=== PATIENT | female | born 1990 | race African-American/Black ===

== ENCOUNTER 2017-03-08 21:55 | Emergency (ER) | payer OTHER ==
[2017-03-08 22:46] LABS: Bilirubin Negative (Negative); Blood, Urine Negative (Negative); Clarity CLEAR (Clear); Glucose, Urine (Dipstick) Negative (Negative); Leukocyte Small (Negative); Nitrite Negative (Negative); Protein, Urine (Dipstick) 30 mg/dL (Neg-Trace); Specific Gravity, Urine 1.027 (1.002-1.036); pH, Urine 6.5 (5.0-9.0)
[2017-03-08 22:47] LABS: Bacteria/HPF None Seen HPF (None Seen); Hyaline Casts/LPF 0-3 HYALINE CAST LPF (0-3 Hyaline); Pathc Cast-AUWi Flag 0.27 (0-2.49)
== END 2017-03-09 01:08 | disposition home or self-care (01) ==
LOC: ERS 21:55
DX: O20.0 Threatened abortion (principal); O98.811 Other maternal infectious and parasitic diseases complicating pregnancy, first trimester; B37.3 Candidiasis of vulva and vagina; O99.341 Other mental disorders complicating pregnancy, first trimester; F41.9 Anxiety disorder, unspecified; F31.9 Bipolar disorder, unspecified; F20.9 Schizophrenia, unspecified; O99.331 Smoking (tobacco) complicating pregnancy, first trimester; Z3A.13 13 weeks gestation of pregnancy
CPT/HCPCS: 36415; 81003; 81015; 84702; 86900; 86901; 87081; 87480; 87491; 87510; 87591; 87660; 99284

== ENCOUNTER 2017-05-05 23:18 | Day surgery (SDC) | payer OTHER ==
[2017-05-05 23:46] VITALS: BMI 37.8
--- NOTE | 2017-05-06 00:38 | PDOC.LDHP ---
Labor and Delivery H&P Chief complaint: other (lower abd/groin pain and vaginal discharge and itching for 3 days) HPI: Jimbo Blair is a 26 year old F at 22.1 wks by 8.6 wk US who presents today with a 3 day history of lower abdominal/groin pain as well as 3 days of vaginal itching and white discharge. She is feeling movement, she denies LOF, vaginal bleeding, contractions, or fevers. She is a patient of [facility] , Dr. Barney is her PCP. She has been seen several times at the clinic with complaints of similar symptoms. She has had multiple wet tiffany with clue cells and she has completed treatment with vaginal clindamycin in the first trimester and PO flagyl in the 2nd trimester for BV. She was also seen in the ED on March 08 with similar symptoms and had a negative GC/Ch and was positive for BV at that time. Current gestational age (weeks): 22 (22.1 wks) Due date: 09/08/17 Dating criteria: first trimester ultrasound (8.6 wks) Grav: 4 Para: 3 (3003) OB History Details: Last two deliveries have been via LTCS. Patient is planning to have repeat . Last was complicated by gestational DM. Current complications: other (mild iron deficiency anemia) Abnormal US findings: No Current medications: none, pre- vitamins Previous surgical history: low tranverse CS (X2) Social history: tobacco use (quit smoking on 02/05/2017, has not smoked since then) - Physical Exam Vital signs reviewed and normal: yes (BP 123/63, HR 96, RR 18, T 98.3) General: NAD, resting Heart: RRR Lungs: nonlabored breathing Abdomen: NTTP Extremeties: no edema FHT: category 1 (baseline 150, mod variability, no accels or decels), variability present [place] contractions every: none - Vaginal Exam cm dilated: 0 (deferred ) - OB Labs Blood type: O RH: positive Antibody Screen: negative HIV: negative RPR: negative HEPSAg: negative Rubella: immune - Assessment (1) Round Ligament Pain (2) Vaginal discharge: history of BV multiple times this discharge points more to estrella - Plan -: (1) Round Ligament Pain: history and physical exam most consistent with round ligament pain. patient denies fevers. Recommend tylenol. (2) Vaginal discharge: History of BV multiple times this s/p treatment. Vaginal discharge consistency more likely estrella. Recommended Monistat 7 cream as well as clotrimazole. VP3 pending. Will notify patient of results when they return in the morning. <Gian Torres - Last Filed: 05/06/17 00:49> <Katt Smith - Last Filed: 05/06/17 22:17> Allergies/Adverse Reactions: Allergies Allergy/AdvReac Type Severity Reaction Status Date / Time No Known Drug Allergies Allergy Unknown Verified 05/05/17 23:48 Attending Addendum - Attending Addendum Date/Time: 05/06/17 8782 I personally evaluated the patient and discussed the management with Dr. Torres. I agree with the History, Examination, Assessment and Plan documented above with any addition or exceptions noted below- 26 year old F at 22.1 wks by 8.6 wk US who presents today with a 3 day history of lower abdominal/groin pain as well as 3 days of vaginal itching and white discharge. VP3 collected and pending. Will notify patient of results. (+) FHTs; no contractions. D/c home and f/u with PCP as scheduled. <Katt Smith - Last Filed: 05/06/17 22:17>
== END 2017-05-06 00:51 | disposition home or self-care (01) ==
LOC: L&D/OP 23:18
PROVIDERS: ATTEND Family Medicine
DX: O99.89 Other specified diseases and conditions complicating pregnancy, childbirth and the puerperium (principal); R10.2 Pelvic and perineal pain; O98.812 Other maternal infectious and parasitic diseases complicating pregnancy, second trimester; B37.9 Candidiasis, unspecified; O99.012 Anemia complicating pregnancy, second trimester; D50.9 Iron deficiency anemia, unspecified; Z3A.22 22 weeks gestation of pregnancy; Z79.899 Other long term (current) drug therapy; Z98.891 History of uterine scar from previous surgery; Z87.891 Personal history of nicotine dependence; Z86.19 Personal history of other infectious and parasitic diseases
CPT/HCPCS: 87480; 87510; 87660; 99283

== ENCOUNTER 2017-08-03 16:43 | Day surgery (SDC) | payer OTHER ==
[~2017-08-03 16:43] MED LIST: ISOVUE-370 76%-LOCM 1 ML ONE
[2017-08-03 17:29] VITALS: BMI 36.9
[2017-08-03] MEDS ORDERED: Lactated Ringer's 1,000 ML IV SCH ×2 (19:00→22:00)
[2017-08-03] MEDS ORDERED: hydrOXYzine 25 MG TAB PO SCH (19:00)
--- NOTE | 2017-08-03 19:04 | PDOC.LDHP ---
Labor and Delivery H&P Chief complaint: other (tachycardia in the clinic) HPI: Patient is a 27yo at 34.6 by LMP/8.6wk presents from clinic for tachycardia into the 120's-130's associated with chest pain. She describes CP as substernal sharp 8/10 CP that was sudden onset at clinic and associated with some SOB. She reports anxiety at the time of the event and endorses similar events at home which she has attributed to anxiety. The pain resolved after receiving 1L IVF at the clinic. At the time of my evaluation she reports no chest pain or SOB. She also has a hx of GERD, but reports this did not feel like GERD pain. She has FHx of early CAD in maternal GM and HTN in mother. She is a smoker, 6cig per day, and has A1GDM, taking Metformin but not as she should because it makes her feel "dizzy." Despite this, she reports her sugars to be 80's-100's. She denies leg pain, LE edema, LOF, decreased FM, VB, and vaginal discharge. She is currently being treated for a yeast infection with Diflucan. Current gestational age (weeks): 34 (34.6) Due date: 09/08/17 Dating criteria: last menstrual period, first trimester ultrasound Grav: 4 Para: 3 OB History Details: first - , no complications 2nd preg- Csection for non-reassuring FHT, GDM diet controlled 3rd preg- Csection, repeat, no complications Current complications: gestational diabetes Abnormal US findings: No Current medications: pre- vitamins, iron, other (Metformin BID, dose unk) Previous surgical history: low tranverse CS Social history: tobacco use (6 cig per day) - Physical Exam Vital signs reviewed and normal: yes Abnormal vital signs: Highest HR here has been 103 General: NAD, resting Heart: RRR Lungs: CTAB Abdomen: gravid Extremeties: other (neg homans) FHT: category 1 [place] contractions every: none - OB Labs Blood type: O RH: positive Antibody Screen: negative HIV: negative RPR: negative HEPSAg: negative 1 hour GCT: positive 3 hour GTT: 147 GBS: unknown Urine drug screen: not done Rubella: immune - Assessment Patient is a at 34.6 her with concern for PE vs anxiety disorder with finding of tachycardia in clinic. HR borderline high at this time, 85 on last set of vitals - EKG ordered to evaluate tachycardia - D-dimer and CTA, consent signed - evaluate for other causes with CBC, TSH, and BMP - will give Hydroxyzine x1 for anxiety - s/p 1L IVF, PO hydrate A1GDM - on Metformin, but not consistent, reports BS wnl at home - A1c pending Will evaluate above labs and tests for d/c vs admission. - Plan Plan: observation in L&D <Abby Jones - Last Filed: 08/03/17 19:02> <Brian Edge - Last Filed: 08/03/17 22:03> Allergies/Adverse Reactions: Allergies Allergy/AdvReac Type Severity Reaction Status Date / Time No Known Drug Allergies Allergy Unknown Verified 08/03/17 17:31 Attending Addendum - Attending Addendum Date/Time: 08/03/17 2200 I personally evaluated the patient and discussed the management with Dr. Jones and Kayla, who saw the patient in clinic. I agree with and repeated the History, Examination, Assessment and Plan documented above with any addition or exceptions noted below. Pt with description as above, but denies any s/s of panic attacks to me previously. Discussed with Dr. Garza, and patient was apparently rather ill appearing in clinic and was sent over specifically to r/o PE. She is currently with no CP or SOB, but anxious about what happened. RRR s M CTAB s w/r/r BS+, NTTP, gravid Neg Conor, symmetric calf circumference Workup as above with disposition pending. <Brian Edge - Last Filed: 08/03/17 22:03>
[2017-08-03 19:30] LABS: Hemoglobin A1c 5.1 % (4.0-6.0)
[2017-08-03 19:32] LABS: Anion Gap 12 mmol/L (10-20); BUN (Urea Nitrogen) 6 mg/dL (7.0-18.7); Calc. Creatinine Clearance 214 mL/min (70-130); Calcium 8.6 mg/dL (7.8-10.44); Carbon Dioxide 18 mmol/L (22-29); Chloride 109 mmol/L (98-107); Estimated GFR-MDRD Greater than 90; Glucose 61 mg/dL (70-105); Potassium 3.9 mmol/L (3.5-5.1); Sodium 135 mmol/L (136-145)
[2017-08-03 19:35] LABS: #Eosinphils 0.1 thou/uL (0.0-0.7); #Lymphocytes 2.1 thou/uL (1.20-3.40); #Monocytes 0.9 thou/uL (0.11-0.59); #Neutrophils 7.1 thou/uL (1.40-6.50); %Basophils 0.3 % (0.0-1.0); %Eosinophils 0.8 % (0.0-10.0); %Lymphocytes 20.2 % (21.0-51.0); %Monocytes 8.9 % (0.0-10.0); %Neutrophils 69.8 % (42.0-75.0); Hemoglobin 10.3 g/dL (12.0-16.0); Mean Corpuscular HGB CONC 32.5 g/dL (32.0-36.0); Mean Corpuscular Hemoglobin 23.4 pg (27.0-31.0); Mean Corpuscular Volume 71.9 fL (78.0-98.0); Mean Platelet Volume 7.7 fL (7.4-10.4); Platelet Count 236 thou/uL (130-400); RBC Distribution Width 13.4 % (11.5-14.5); White Blood Cell (WBC) Count 10.1 thou/uL (4.8-10.8)
[2017-08-03 19:50] LABS: Hypochromia SLIGHT = 6-15 cells (100X) (0-5/hpf); MDiff Complete? YES; Microcytosis SLIGHT = 6-15 cells (100X) (0-5/hpf); PLT Morphology Comment Appears Adequate; Polychromasia SLIGHT = 2-3 cells (100X) (0-2/hpf)
[2017-08-03 19:56] VITALS: BP 126/68; TEMP 98.5
[2017-08-03 20:19] LABS: Amphetamine Not Detected (NotDetected); Barbiturates Screen Not Detected (NotDetected); Benzodiazepine Screen Not Detected (NotDetected); Cocaine Metabolite Screen Not Detected (NotDetected); Medtox Reader # READER 1; Methadone Not Detected (NotDetected); Methamphetamine Not Detected (NotDetected); Opiate Screen Not Detected (NotDetected); Oxycodone Screen Not Detected (NotDetected); Phencyclidine (PCP) Not Detected (NotDetected); THC/Cannabinoid Screen Not Detected (NotDetected); Tricyclic Screen Not Detected (NotDetected)
[2017-08-03 20:20] LABS: Medtox Control Line Valid? VALID (VALID)
--- NOTE | 2017-08-03 22:05 | PDOC.EVN ---
Event Note - Event Note Event Note: Patient labs resulted. All tests wnl. EKG NSR, CTA negative, CBC, BMP, TSH, and UDS wnl. Patient now with HR of 75 and much improved after Hydroxyzine. Will give script for prn Hydroxyzine and have f/u with Dr. Barney in [facility] clinic next week. <Abby Jones - Last Filed: 08/03/17 22:02> Attending Addendum - Attending Addendum Date/Time: 08/04/17621 Reviewed and agree with plan. <Brian Edge - Last Filed: 08/04/17 06:22>
--- NOTE | 2017-08-03 22:28 | CT ---
CTA THORAX WITH CONTRAST: (Computed Tomographic Angiography, chest(noncoronary) with contrast material, and image postprocessin g) (PE protocol) DATE: 08/03/17 TIME: 8:44 p.m. HISTORY: 27-year-old female with chest pain, dyspnea, tachycardia and elevated D-dimer. TECHNIQUE: IV injection of iodinated contrast: Isovue. Scan acquisition timing attempted to coincide with iodinated contrast bolus reaching maximal density in pulmonary arteries. 3D MIP reconstructions. FINDINGS: Because of body habitus, the peripheral branches of the pulmonary arteries are somewhat difficult to evaluate. No thrombus is identified in the pulmonic trunk, left and right main pulmonary arteries, or their proximal branches. No thoracic aortic aneurysm or dissection. Mild cardiomegaly. No pleural ef fusion or pneumothorax. No consolidation. No mediastinal or hilar lymphadenopathy. There appears to b e hepatomegaly, only partially imaged. Trachea and bilateral mainstem bronchi are patent and clear. IMPRESSION: 1. No evidence of pulmonary thromboembolism. 2. Hepatomegaly. 3. Borderline or mild cardiomegaly. lovely[] POS: [facility]
--- NOTE | 2017-08-04 06:46 | PDOC.EVN ---
Event Note - Event Note Event Note: Addendum: Feel cardiomegaly on imaging physiologic 2/2 . Concerning hepatomegaly presentation not c/w ICP, hepatitis, biliary pathology, AFP, HELLP , preE, etc. Will follow in clinic early next week.
== END 2017-08-03 22:11 | disposition home or self-care (01) ==
LOC: L&D/OP 16:43
PROVIDERS: ATTEND Emergency Medicine
DX: O99.89 Other specified diseases and conditions complicating pregnancy, childbirth and the puerperium (principal); R00.0 Tachycardia, unspecified; O24.419 Gestational diabetes mellitus in pregnancy, unspecified control; Z3A.34 34 weeks gestation of pregnancy
CPT/HCPCS: 36415; 71275; 80048; 80306; 83036; 84443; 85025; 85379; 93005; 93010; 96360; 96361; 99285

== ENCOUNTER 2017-08-17 16:45 | Day surgery (SDC) | payer OTHER ==
[2017-08-17 17:23] VITALS: BP 134/75; TEMP 98.1; BMI 37.0
[2017-08-17] MEDS ORDERED: Lactated Ringer's 1,000 ML IV SCH (18:15)
[2017-08-17 18:59] LABS: Amnisure Test No Membranes Rupture (No Rupture)
[2017-08-17 19:00] LABS: Amnisure Internal Control QC ACCEPTABLE (ACCEPTABLE)
--- NOTE | 2017-08-17 19:18 | PDOC.LDHP ---
Addendum entered and electronically signed by Helen East MD 08/17/17 21:50 : Addendum entered and electronically signed by Helen East MD 08/17/17 21:40 : Agree with with interns note below. Sent over for decreased tone and low KAREEN on BPP in clinic today. Triaged in L&D , records reviewed. Liter bolus given. BPP repeated and 6/8 (loss for breathing) . KAREEN 9.3. Patient now reports good FM. PROM ruled out with negative amnisure. BP remain in normal range. NST reactive. Will d/c with follow up in 4 days on Monday. Precautions provided to return for decreased movement, LOF, vag bleeding, ctxs, or maternal concern. Original Note: Labor and Delivery H&P Chief complaint: contractions, other (Concern for low KAREEN and no tone) HPI: 27 yo F @ 36.6 wks by 8.6 wk US consistent with LMP, sent here from clinic for concern for low KAREEN and no tone. BPP 6/10 secondary to poor tone and KAREEN of 4.94. US at 36 wks showed KAREEN of 12.4. Patient denies LOF, cxn, bleeding , and baby is moving well now. Pt states baby was moving less earlier today. She states she has had increased creamy white non-malodorous discharge this week. Pregancy complicated by A2GDM treated by metformin. Pt states she ran out of strips, but Blood sugars last week were fasting in 80s, 2 hr post-prandial 107- 111. She currently smokes 5 cigarettes/day. Anemia of with this . Last H&H (on 07/17) 10.2/32.8. Prior with Pre-eclampsia. Hx of 2 prior Csections. FHTs are reassuring: Baseline 140, moderate variability, good accels, no decels , and no contractions. Cat 1 FHTs. 08/11/17 [facility] up [facility] at [facility] (36.0 wks): transabdominal US: EFW 2495 23%, BPP 8/8, normal UA dopplers, KAREEN 12.4 ROS: HEENT: + for Headache, no fevers/chills, cough or congestion, Chest: no chest pain or SOB. +Pain on left lateral chest Abd: no belly pain, nausea/vom, no blood in stools. : + discharge. no LOF. no dysuria or incontinence. Psych: + for anxiety Current gestational age (weeks): 36 (36.3) Due date: 09/08/17 Dating criteria: last menstrual period, first trimester ultrasound (8.6 wk US consistent with LMP) Grav: 4 Para: 3 OB History Details: [place] [facility] [place]36.0 [place] transabdominal US: EFW 2495 23%, BPP 8/8, normal UA dopplers, KAREEN 12.4. KAREEN in clinic topday (08/17) was 4.94. Pregancy complicated by A2GDM treated by metformin. Pt states she ran out of strips, but Blood sugars last week were fasting in 80s, 2 hr post-prandial 107- 111. She currently smokes 5 cigarettes/day. Anemia of with this . Last H&H (on 07/17) 10.2/32.8. GBS+. Proteinuria (but her BP have remained stable). Prior with Pre- eclampsia. Hx of 2 prior Csections. Current complications: gestational diabetes, gestational hypertension , other (GBS+, smoking 5cig/day, anemia of ) Past Medical History: Medical: Iron deficiency anemia, obesity Surgical: two prior Csections Family: Maternal gma [place] and stroke; great aunt with breast cancer, great aunt with DM Current medications: pre-dario vitamins, iron (325mg PO BID), other ( Hydroxyzine 25 mg TID for anxiety; metformin 500 BID for GDM) Previous surgical history: other (2 Csections) Social history: tobacco use (5 cig/day; denies alcohol or drug use) - Physical Exam Vital signs reviewed and normal: yes (BP 134/75, P 104, O2 98%, RR 12) General: NAD, resting Heart: other (no murmurs, rubs, or gallops) Lungs: CTAB Abdomen: other (non tender to palpation) Extremeties: other (cap refill <2 seconds) FHT: category 1 (Baseline 140, mod variability, good accels, no decels, no contractions.) - OB Labs Blood type: O RH: positive Antibody Screen: negative HIV: negative RPR: negative HEPSAg: negative 1 hour GCT: positive GBS: positive Rubella: immune - Assessment 27 yo F @ 36.6 wks by 8.6 wk US, concern for low KAREEN and no tone, and rule out rupture of membranes. - Plan -: 27 yo F @ 36.6 wks by 8.6 wk US, concern for low KAREEN and no tone, and rule out rupture of membranes. 1. Concern for Oligohydramnios: -bolus with fluids, followed by BPP with limited US including umbilical dopplers -amniosure to r/o rupture -Reassuring NSTs 2. Proteinuria -Has been worked up for Pre-Ecclampsia, but her blood pressures have remained stable 3. Anemia of -Iron 4. A2GDM -Continue metformin 5. Headache -Tylenol 6. Current tobacco user 7. GBS+ <Bobbi Huddleston - Last Filed: 08/17/17 21:34> - Plan -: agree with interns noted above. Patient evaluated and seen with business services intern. Records reviewed. Patient sent over from clinic for decreased tone and low KAREEN on BPP. Received 1 lt bolus in L&D. BPP repeated and 07/14. (loss for breathing). KAREEN = 9.3. Vitals reviewed and wnl. PROM ruled out with neg amnisure. Will DC patient with follow up in 4 days on Monday. Precautions provided to return for decreased movement, LOF, vag bleeding, ctxs, or maternal concern. Helen East MD PGY-3 <Mone Gmoez - Last Filed: 08/17/17 22:01> Allergies/Adverse Reactions: Allergies Allergy/AdvReac Type Severity Reaction Status Date / Time No Known Drug Allergies Allergy Unknown Verified 08/03/17 17:31 Attending Addendum - Attending Addendum Date/Time: 08/17/17 5359 I personally evaluated the patient and discussed the management with Dr. Huddleston and Dr. East I agree with the History, Examination, Assessment and Plan documented above with any addition or exceptions noted below. 27 yo female at 36.6 wks by LMP/8.6 wk sono here for evaluation of nonreassuring testing. Patient with poorly controlled A2 GDM presents with BPP 4/8 with reactive NST. Patient given IVFs. Repeat BPP 07/14 with reactive NST. + FM. Amnisure negative. POC glucose = 76 Ok to send home. Precautions discussed. Follow up on Monday with PCP. Claritza <Mone Gomez - Last Filed: 08/17/17 22:01>
[2017-08-17] MEDS ORDERED: Acetaminophen 325 MG TAB PO PRN (20:13)
--- NOTE | 2017-08-17 22:06 | ULT ---
LIMITED OBSTETRICAL ULTRASOUND AND BIOPHYSICAL PROFILE: 08/17/17 HISTORY: Concern for low KAREEN and no tone. TECHNIQUE: Multiplanar sher scale sonographic imaging of the gravid uterus obtained. FINDINGS: A single intrauterine gestation is present demonstrating a cephalic presentation. head obscures evaluation of the cervix. heart rate is 137 beats per minute. Amniotic fluid index is 9.3 cm. Umbilical arterial doppler in the mid umbilical artery demonstrates a systolic/diastolic ratio of 1.2-1.8 and a peak systolic velocity between 66 and 78 cm/s. The ice skating teacher reports 2 out of 2 score for tone, movement and amniotic fluid and 0 out of 2 for breathing correlating with a 6 out of 8 biophysical profile score. BIOMETRY: BPD 8.9 cm 36 weeks, 0 days. HC 31.4 cm 35 weeks, 1 day AC 31.6 cm 35 weeks, 3 days FL 6.8 cm 34 weeks, 5 days Average aged based on ultrasound is 35 weeks, 2 days with estimated weight of 2643 grams plus m inus 391 grams. Estimated date of delivery is 09/19/17. IMPRESSION: Intrauterine gestation as above. 6 out of 8 biophysical profile score. Performing ice skating teacher reports giving verbal report to Dr. Huddleston. POS: [facility]
[2017-08-17 22:48] LABS: Amphetamine Not Detected (NotDetected); Barbiturates Screen Not Detected (NotDetected); Benzodiazepine Screen Not Detected (NotDetected); Cocaine Metabolite Screen Not Detected (NotDetected); Medtox Control Line Valid? VALID (VALID); Medtox Reader # READER 1; Methadone Not Detected (NotDetected); Methamphetamine Not Detected (NotDetected); Opiate Screen Not Detected (NotDetected); Oxycodone Screen Not Detected (NotDetected); Phencyclidine (PCP) Not Detected (NotDetected); THC/Cannabinoid Screen Not Detected (NotDetected); Tricyclic Screen Not Detected (NotDetected)
--- NOTE | 2017-08-18 14:19 | ULT ---
LIMITED OBSTETRICAL ULTRASOUND AND BIOPHYSICAL PROFILE: 08/17/17 HISTORY: Concern for low KAREEN and no tone. TECHNIQUE: Multiplanar sher scale sonographic imaging of the gravid uterus obtained. FINDINGS: A single intrauterine gestation is present demonstrating a cephalic presentation. head obscures evaluation of the cervix. heart rate is 137 beats per minute. Amniotic fluid index is 9.3 cm. Umbilical arterial doppler in the mid umbilical artery demonstrates a systolic/diastolic ratio of 1.2-1.8 and a peak systolic velocity between 66 and 78 cm/s. The return agent airport reports 2 out of 2 score for tone, movement and amniotic fluid and 0 out of 2 for breathing correlating with a 6 out of 8 biophysical profile score. BIOMETRY: BPD 8.9 cm 36 weeks, 0 days. HC 31.4 cm 35 weeks, 1 day AC 31.6 cm 35 weeks, 3 days FL 6.8 cm 34 weeks, 5 days Average aged based on ultrasound is 35 weeks, 2 days with estimated weight of 2643 grams plus m inus 391 grams. Estimated date of delivery is 09/19/17. IMPRESSION: Intrauterine gestation as above. 6 out of 8 biophysical profile score. Performing return agent airport reports giving verbal report to Dr. Huddleston.
== END 2017-08-17 21:56 | disposition home health service (06) ==
LOC: L&D/OP 16:45
PROVIDERS: ATTEND Student in an Organized Health Care Education/Training Program
DX: O41.03X0 Oligohydramnios, third trimester, not applicable or unspecified (principal); O24.415 Gestational diabetes mellitus in pregnancy, controlled by oral hypoglycemic drugs; O99.333 Smoking (tobacco) complicating pregnancy, third trimester; F17.210 Nicotine dependence, cigarettes, uncomplicated; O99.013 Anemia complicating pregnancy, third trimester; D64.9 Anemia, unspecified; O13.3 Gestational [pregnancy-induced] hypertension without significant proteinuria, third trimester; O99.213 Obesity complicating pregnancy, third trimester; E66.9 Obesity, unspecified; Z68.37 Body mass index [BMI] 37.0-37.9, adult; Z3A.36 36 weeks gestation of pregnancy; Z79.84 Long term (current) use of oral hypoglycemic drugs; Z79.899 Other long term (current) drug therapy
CPT/HCPCS: 36416; 59025; 76805; 76819; 80306; 84112; 93976; 96360; 99283

== ENCOUNTER 2017-08-25 10:04 | Inpatient (IN) | payer OTHER ==
--- NOTE | 2017-08-24 17:42 | PDOC.LDHP ---
Labor and Delivery H&P Chief complaint: scheduled section HPI: 27 y/o @ 38.0 WGA by LMP c/w 8.6 wk sono presents for rLTCS due to uncontrolled GDM. The patient has a h/o 2 prior c-sections. She has been on Metformin for her GDM, but has been non-compliant with checking her blood sugars and with taking her metformin. The patient denies any ctx, LOF, vaginal bleeding, vaginal d/c, H/A, vision changes. The patient reports good movement. Current gestational age (weeks): 38 (38w0d) Due date: 09/08/17 Dating criteria: last menstrual period Grav: 4 Para: 3 OB History Details: 3 prior term deliveries, 1 and 2 c-sections. She had GDM that was diet controlled in her two prior pregnancies. Her first c- section was for NRFHT and was found to have a nuchal cord. The second was a scheduled repeat. Current complications: gestational diabetes Abnormal US findings: No Current medications: pre-dario vitamins, iron Previous surgical history: low tranverse CS (x2) Social history: tobacco use (smoked 1/4 ppd intermittently during , she quit at 2 different points) - Physical Exam Vital signs reviewed and normal: yes General: NAD Heart: RRR (3/6 systolic murmur loudest on L 2nd intercostal space) Lungs: CTAB Abdomen: gravid (fetus is vertex) Extremeties: no edema FHT: category 1 (baseline 130, mod variability, + accels, no decels), variability present - OB Labs Blood type: O RH: positive Antibody Screen: negative HIV: negative RPR: negative HEPSAg: negative 1 hour GCT: positive 3 hour GTT: positive GBS: positive Urine drug screen: negative Rubella: immune - Assessment L&D Assessment: scheduled repeat section - Plan Plan: admit to L&D, to OR for section, informed consent obtained, anesthesia consult for pain management -: 1. TIUP - @ 38.0 WGA -Scheduled rLTCS for uncontrolled GDM due to non-compliance per recommendations of MFM. -Ancef for ppx -NPO -LR @ 125 2. Gestational Diabetes - (A2GDM) Pt has been non-compliant with taking metformin and checking blood sugars -Accucheck prior to surgery 3. Iron Deficiency Anemia Pt had been on iron prior to , but anemia got worse during , remained on iron. -Cont iron after -Check H/H 4. Tobacco Abuse Pt reportedly quit smoking within the last week -Encourage continued cessation 5. Proteinuria -pt will need to be monitored post- <Helen Barney - Last Filed: 08/25/17 11:36> <Brian Edge - Last Filed: 08/25/17 15:33> Allergies/Adverse Reactions: Allergies Allergy/AdvReac Type Severity Reaction Status Date / Time No Known Drug Allergies Allergy Unknown Verified 08/25/17 10:57 Attending Addendum - Attending Addendum Date/Time: 08/25/17 1532 (see and examined prior to her surgery) I personally evaluated the patient and discussed the management with Dr. Barney. I agree with and repeated the History, Examination, Assessment and Plan documented above with any addition or exceptions noted below. <Brian Edge - Last Filed: 08/25/17 15:33>
[~2017-08-25 10:04] MED LIST changes: +Bicitra 30 ML UDCUP PO SCH; +CEFAZOLIN/Water 2 GM/20 ML SYRINGE SLOW IVP SCH; -ISOVUE-370 76%-LOCM 1 ML ONE; +Ondansetron HCl/PF 4 MG/2 ML Vial IVP PRN
[2017-08-25] MEDS: Lactated Ringer's 1,000 ML IV SCH ×3 (10:38→20:25)
[2017-08-25 10:58] LABS: Hemoglobin 10.9 g/dL (12.0-16.0); Mean Corpuscular HGB CONC 32.7 g/dL (32.0-36.0); Mean Corpuscular Hemoglobin 23.4 pg (27.0-31.0); Mean Corpuscular Volume 71.4 fL (78.0-98.0); Mean Platelet Volume 7.9 fL (7.4-10.4); Platelet Count 244 thou/uL (130-400); RBC Distribution Width 13.6 % (11.5-14.5); Red Blood Cell (RBC) Count 4.65 mill/uL (4.20-5.40); White Blood Cell (WBC) Count 8.5 thou/uL (4.8-10.8)
[2017-08-25] MEDS ORDERED: Bupivacaine 0.75% W/DEXTROSE 8.25% 2 ML AMP ONE (11:02)
[2017-08-25] MEDS ORDERED: Ondansetron HCl/PF 4 MG/2 ML Vial ONE ×2 (11:03→13:19)
[2017-08-25 11:12] VITALS: BMI 37.5
[2017-08-25] MEDS ORDERED: Oxytocin 10 UNITS/ML VIAL ONE ×2 (11:33→12:51)
[2017-08-25 11:40] LABS: HBSAg Index 0.16 S/CO (0-0.99); Hep B Surf Ag Non-Reactive S/CO (NonReactive)
[2017-08-25 11:46] LABS: Syphilis Antibody Nonreactive (Nonreactive); Syphilis Antibody Index 0.03 S/CO (<1.00 Non-Reactive)
[2017-08-25] MEDS ORDERED: Lidocaine 1% PF 5 ML VIAL ONE (11:58)
[2017-08-25] MEDS ORDERED: PHENYLEPHRINE-NS 100 MCG/ML 10 ML SYRINGE ONE (12:10)
[2017-08-25] MEDS ORDERED: Fentanyl 100 MCG/2 ML VIAL ONE ×3 (13:03→13:45)
[2017-08-25] MEDS ORDERED: Dexamethasone 4 mg/ml Vial ONE (13:16)
[2017-08-25] MEDS ORDERED: Acetaminophen 325 MG TAB PO PRN (13:18)
[2017-08-25] MEDS ORDERED: Bisacodyl 10 MG SUPP PR PRN (13:18)
[2017-08-25] MEDS ORDERED: Lanolin Ointment 7 GM TUBE TOP PRN (13:18)
[2017-08-25] MEDS ORDERED: HYDROcodone/Acetaminophen 5/325 mg Tablet PO PRN ×2 (13:18)
[2017-08-25] MEDS ORDERED: Adacel (T-DAP) 0.5 ML VIAL IM ONE (13:18)
[2017-08-25] MEDS ORDERED: Ondansetron HCl/PF 4 MG/2 ML Vial IVP PRN ×3 (13:18→14:15)
[2017-08-25 13:31] LABS: Glucose 85 mg/dL (70-105)
[2017-08-25] MEDS ORDERED: HYDROmorphone 2 MG/ML VIAL SLOW IVP PRN (13:57)
[2017-08-25] MEDS ORDERED: Meperidine HCl/PF 25 MG/ML VIAL SLOW IVP PRN (13:57)
[2017-08-25] MEDS ORDERED: Ibuprofen 800 MG TAB PO SCH (14:00)
[2017-08-25] MEDS ORDERED: Ketorolac Tromethamine 30 MG/ML VIAL IVP SCH (14:00)
[2017-08-25] MEDS ORDERED: Morphine 4 MG/ML VIAL ONE (14:03)
[2017-08-25] MEDS ORDERED: Naloxone HCl 0.4 mg/ml Vial IV PRN (14:15)
[2017-08-25] MEDS ORDERED: Morphine CADD 1 MG/ML CADD IVPB PRN (14:15)
[2017-08-25] MEDS ORDERED: Promethazine HCl 25 MG/ML VIAL IM PRN (14:15)
[2017-08-25] MEDS ORDERED: diphenhydrAMINE 50 MG/ML VIAL IVP PRN (14:15)
[2017-08-25] MEDS ORDERED: diphenhydrAMINE 25 MG CAP PO PRN (14:15)
[2017-08-25] MEDS ORDERED: Communication Order-Pharmacy FS SCH (14:15)
[2017-08-25] MEDS ORDERED: diphenhydrAMINE 50 MG/ML VIAL IM PRN (14:15)
[2017-08-25] MEDS ORDERED: Zolpidem Tartrate 5 MG TAB PO PRN (14:15)
[2017-08-25] MEDS ORDERED: Meperidine HCl/PF 25 MG/ML VIAL ONE (15:36)
--- NOTE | 2017-08-25 17:03 | PDOC.OPDEL ---
OB Operative/Delivery Note Delivery Dr/Surgeon: Dr. Helen Barney, Dr. Ximena Montes, Dr. Brian Edge, Dr. Eddie Cerda Pre-Delivery Diagnosis: scheduled section Procedure/Post Delivery Dx: primary low transverse CS Weeks gestation: 38 Anesthesia: spinal - Findings A Sex: male Weight: 2.825 kg - 1 min: 9 - 5 min: 9 - Additional Findings/Plan Placenta delivered: spontaneous findings: low transverse hysterotomy without extension, normal uterus, normal tubes, normal ovaries Compilations/Other Findings: Preoperative Diagnosis: 1)Term intrauterine 2)Previous x2 3)Uncontrolled Gestational Diabetes 4)Iron deficiency anemia 5)Proteinuria Postoperative Diagnosis: 1)Term intrauterine 2)Previous x2 3)Uncontrolled Gestational Diabetes 4)Iron deficiency anemia 5)Proteinuria 6)Dense fascial Adhesions 7)1cm subserosal fibroid in fundus Anesthesia: spinal Indications: The patient is a 27 year old female at 38 0/7 weeks gestation who presents for a repeat scheduled . Procedure in Detail: After risks, benefits, and alternatives were explained to the patient, she gave informed consent. Pre-operative antibiotics included Cefazolin 2 gram IV. The patient was taken to the operating room and spinal anesthesia was initiated. She was placed in the supine position with a left tilt and prepped and draped in usual sterile fashion. A Pfannenstiel incision was made with a scalpel and carried down to the level of the fascia which was sharply nicked. The fascial cut was extended bilaterally with Gibbs scissors. The inferior and superior edges of the cut fascial edges were elevated with Joe clamps and the underlying rectus muscles were sharply and bluntly dissected free. There were dense fascial adhesions that were freed with curved mayos. The recti were divided sharply down the midline by elevating two sides with hemostats and sharply dissecting the midline. They were then retracted manually. The peritoneum was entered bluntly and retracted manually. Bladder blade was placed. A low transverse score was made with the scalpel and the uterus was entered in the midline bluntly. The hysterotomy was extended manually in a cephalocaudal fashion. An amniotomy was performed with an Allis clamp and clear fluid was seen. The infant was noted to be vertex and was easily delivered by fundal pressure. Mouth and nares were bulb suctioned. Cord clamped and cut and grossly normal male was handed to waiting nurse. Cord blood was obtained. Placenta was spontaneously extracted, found to be intact with 3 vessel cord and discarded. The uterus was externalized and the endometrium was curetted with a dry lap. The bladder blade was replaced and the uterus was closed with a running locking #1 Monocryl suture. Following this hemostasis was noted. The abdomen was irrigated with saline and suctioned free of clots. The uterus was internalized and the hysterotomy was found to have one area with that was still bleeding. This was repaired with a figure of eight with #1 monocryl suture. After this, the hysterotomy was again noted to be hemostatic. The fascia was closed with a running non-locking 0-PDS suture. The subcutaneous tissue was irrigated and there were several small bleeders noted. The bovie was used to stop these bleeders. The subcutaneous layer was closed with 3 simple interrupted 2-0 plaingut sutures. The skin was sutured closed with 4-0 monocryl and a pressure dressing was placed. All counts were correct. The patient tolerated the procedure well and was taken to the recovery room in stable condition. Quantitated Blood Loss: 575 ml Complications: None Specimens: Cord blood sent to lab for blood type Findings: Grossly normal male infant with apgars of 9 and 9 at 1 and 5 minutes respectively was born at 1237 on [birth year]. Grossly normal placenta with 3 vessel cord discarded. Drains: Villalobos to gravity draining clear urine Post delivery plan: routine recovery
--- NOTE | 2017-08-25 17:57 | PDOC.PP ---
Post Progress Note Post Day #: 0 Subjective: 27 y/o ->4 delivered via rLTCS at 1237 today. The patient was seen 5 hours post-op. The patient reports that the CROSS COUNTRY/TRACK AND FIELD COACH pump helped significantly with her abdominal pain. She denies any complaints currently. She has been trying to breastfeed and Maicol has had a good latch, but he keeps falling asleep right after feeding. She denies much vaginal bleeding, but says she hasn't really been checking. She has been tolerating juice and water without any nausea. She can move her legs and feel them a little, but not fully yet. PO intake tolerated: yes Flatus: no Ambulation: no Vital Signs (12 hours) Temp Pulse Resp BP Pulse Ox 08/25/17 17:30 98.6 F 80 20 118/56 L 08/25/17 16:10 98.7 F 94 18 110/57 L 96 08/25/17 11:12 98.8 F 93 18 Weight Weight 87.09 kg - Physical Examination General: NAD Cardiovascular: RRR Respiratory: clear to auscultation bilaterally, non-labored breathing Abdominal: + bowel sounds, lochia (small amount per nurses documentation), no distention, appropriately TTP Fundus firm & at: level of umbilicus Extremities: negative homans (B) Skin: CS incision dry & intact, no rash Neurological: no gross focal deficits Psychiatric: A&Ox3, normal affect Result Diagrams: 08/25/17 10:46 08/25/17 10:46 Additional Labs: Post Labs Blood Type O POSITIVE 08/25/17 10:46 Hep Bs Antigen Non-Reactive S/CO (NonReactive) 08/25/17 10:46 (1) delivery delivered Code(s): O82 - ENCOUNTER FOR DELIVERY WITHOUT INDICATION Status: Acute Comment: 27 y/o ->4 delivered via rLTCS @ 38.0 WGA PPD #0 -CROSS COUNTRY/TRACK AND FIELD COACH pump in place, anesthesia consulted for pain management -Clear liquid diet, advance diet as tolerated -Persaud in place, remove persaud once ambulatory -Encourage ambulation once pt able to ambulate -Encourage breast feeding -Continue PNV -Pt desires circumcision for the -Plan to refer for post- tubal as pt desires permanent contraception (2) Gestational diabetes mellitus (GDM) controlled on oral hypoglycemic drug Code(s): O24.415 - GESTATNL DIABETES IN PREG, CTRL BY ORAL HYPOGLYCEMIC DRUGS Status: Acute QualifierTitle: Trimester: third trimester Qualified Code(s): O24.415 - Gestational diabetes mellitus in , controlled by oral hypoglycemic drugs Comment: Pt was on Metformin during , but was non-compliant with medication and with glucose checks. -Will check post- blood sugar -Will hold metformin -Will assess for DM2 in 6 weeks at post- visit -Honing Machine Try Out Setter pt on continuing good diet (3) Iron deficiency anemia Code(s): D50.9 - IRON DEFICIENCY ANEMIA, UNSPECIFIED Status: Acute QualifierTitle: Iron deficiency anemia type: unspecified iron deficiency Qualified Code(s): D50.9 - Iron deficiency anemia, unspecified Comment: Hb 10.9 on admission. -Continue iron -Check H/H in AM (4) Proteinuria affecting Code(s): O12.10 - GESTATIONAL PROTEINURIA, UNSPECIFIED TRIMESTER Status: Acute QualifierTitle: Trimester: third trimester Qualified Code(s): O12.13 - Gestational proteinuria, third trimester Comment: Will monitor post- (5) Tobacco use affecting , antepartum Code(s): O99.330 - SMOKING (TOBACCO) COMPLICATING , UNSP TRIMESTER Status: Acute Comment: Pt reports cessation within the last week. -Encourage continued cessation <Helen Barney - Last Filed: 08/25/17 17:52> Vital Signs (12 hours) Temp Pulse Resp BP 08/28/17 08:42 97.9 F 92 20 08/28/17 08:36 97.9 F 92 20 128/75 08/28/17 07:58 98.5 F 91 20 Weight Weight 87.09 kg Result Diagrams: 08/26/17 05:07 08/25/17 10:46 Additional Labs: Post Labs Blood Type O POSITIVE 08/25/17 10:46 Hep Bs Antigen Non-Reactive S/CO (NonReactive) 08/25/17 10:46 <Brian Edge - Last Filed: 08/28/17 18:40> Attending Addendum - Attending Addendum Date/Time: 08/28/17 1840 I personally reviewed. <Brian Edge - Last Filed: 08/28/17 18:40>
[2017-08-25] MEDS: Ketorolac Tromethamine 30 MG/ML VIAL IVP SCH (18:44)
[2017-08-25] MEDS: Docusate Calcium (SURFAK) 240 MG CAP PO SCH (23:02)
[2017-08-25] MEDS: Ferrous Sulfate 325 MG TAB PO SCH (23:03)
[2017-08-26] MEDS: Ketorolac Tromethamine 30 MG/ML VIAL IVP SCH ×4 (00:29→18:14)
[2017-08-26 05:55] LABS: Hemoglobin 8.8 g/dL (12.0-16.0); Mean Corpuscular HGB CONC 32.1 g/dL (32.0-36.0); Mean Corpuscular Hemoglobin 23.3 pg (27.0-31.0); Mean Corpuscular Volume 72.5 fL (78.0-98.0); Mean Platelet Volume 8.4 fL (7.4-10.4); Platelet Count 207 thou/uL (130-400); RBC Distribution Width 13.7 % (11.5-14.5); Red Blood Cell (RBC) Count 3.78 mill/uL (4.20-5.40); White Blood Cell (WBC) Count 12.4 thou/uL (4.8-10.8)
--- NOTE | 2017-08-26 07:31 | PDOC.PP ---
Post Progress Note Post Day #: 1 Subjective: Pain well-controlled. Doesn't feel is going very well and has been painful at times but is trying and plans to use breast pump today. Ambulating without difficulty and tolerating water. PO intake tolerated: yes Flatus: yes Ambulation: yes Vital Signs (12 hours) Temp Pulse Resp BP Pulse Ox 08/26/17 03:00 99.0 F 69 18 109/59 L 08/26/17 00:15 98.2 F 77 18 95/55 L 08/25/17 20:27 98.9 F 79 18 106/58 L 97 Weight Weight 87.09 kg - Physical Examination General: NAD Cardiovascular: no m/r/g, RRR Respiratory: clear to auscultation bilaterally, non-labored breathing Abdominal: lochia (minimal), no distention, appropriately TTP Fundus firm & at: umbilicus Deviation from normal: no TTP Skin: CS incision dry & intact, no rash Neurological: no gross focal deficits Psychiatric: A&Ox3, normal affect Result Diagrams: 08/26/17 05:07 08/25/17 10:46 Additional Labs: Post Labs Blood Type O POSITIVE 08/25/17 10:46 Hep Bs Antigen Non-Reactive S/CO (NonReactive) 08/25/17 10:46 (1) care and examination Code(s): Z39.2 - ENCOUNTER FOR ROUTINE FOLLOW-UP Status: Acute (2) delivery delivered Code(s): O82 - ENCOUNTER FOR DELIVERY WITHOUT INDICATION Status: Acute (3) Tobacco abuse Code(s): Z72.0 - TOBACCO USE Status: Acute (4) Iron deficiency anemia Code(s): D50.9 - IRON DEFICIENCY ANEMIA, UNSPECIFIED Status: Acute QualifierTitle: Iron deficiency anemia type: unspecified iron deficiency Qualified Code(s): D50.9 - Iron deficiency anemia, unspecified (5) Proteinuria affecting Code(s): O12.10 - GESTATIONAL PROTEINURIA, UNSPECIFIED TRIMESTER Status: Acute QualifierTitle: Trimester: third trimester Qualified Code(s): O12.13 - Gestational proteinuria, third trimester - Assessment/Plan 27 y/o now P4004 delivered via rLTCS @ 38.0 WGA on 08/25 1. PPD #1 - BAGGER AND STOCK HANDLER HELPER pump in place, anesthesia consulted for pain management - Clear liquid diet, advance diet as tolerated - Villalobos D/C, due to void -Encouraged breast feeding, consultation if available - Continue PNV - Pt desires circumcision for the - Plan to refer for post- tubal as pt desires permanent contraception 2. A2GDM - Pt was on Metformin during , but was non-compliant with medication and with glucose checks. - PP blood glucose WNL, will d/c metformin and plan for 6 week pp check 3. Anemia of - H&H this morning 8.8/27.4 - Continue iron and PNV 4. Tobacco abuse - Encourage cessation 5. Proteinuria - Monitor outpatient <Ximena Montes - Last Filed: 08/26/17 07:34> Vital Signs (12 hours) Temp Pulse Resp BP 08/26/17 12:17 98.3 F 84 20 118/59 L 08/26/17 08:31 98.7 F 94 20 112/56 L 08/26/17 03:00 99.0 F 69 18 109/59 L Weight Weight 87.09 kg Result Diagrams: 08/26/17 05:07 08/25/17 10:46 Additional Labs: Post Labs Blood Type O POSITIVE 08/25/17 10:46 Hep Bs Antigen Non-Reactive S/CO (NonReactive) 08/25/17 10:46 <Mone Gomez - Last Filed: 08/26/17 13:33> Attending Addendum - Attending Addendum Date/Time: 08/26/17 3822 I personally evaluated the patient and discussed the management with Dr. Montes and Dr. Barney I agree with the History, Examination, Assessment and Plan documented above with any addition or exceptions noted below. 27 yo female s/p RLTCS with lysis of adhesions. POD#1 Doing well. Ambulating. Tolerating PO. Pain controlled on pain regiment. + flatus. VS reviewed. Fundus firm below umbilicus. Incision healing well. Yair in place. 1. s/p RLTCS: Pain controlled. Continue routine care. 2. A2, GDM: Needs 2 hour gtt at 6 wks pp 3. Tobacco use: Cessation 4. Anemia 2/2 blood loss: Asymptomatic. Appropriate drop. 5. 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 6. Contraception: pp BTL ABrayMD <Mone Gomez - Last Filed: 08/26/17 13:33>
[2017-08-26] MEDS: Ferrous Sulfate 325 MG TAB PO SCH ×2 (09:31→22:29)
[2017-08-26] MEDS: Prenatal Vitamin 1 TAB PO SCH (09:31)
[2017-08-26] MEDS: Docusate Calcium (SURFAK) 240 MG CAP PO SCH ×2 (09:31→22:29)
[2017-08-26] MEDS ORDERED: Loratadine 10 MG TAB PO SCH (10:30)
[2017-08-26] MEDS ORDERED: Polyethylene Glycol 3350 17 GM Packet PO PRN (11:13)
[2017-08-26] MEDS: HYDROcodone/Acetaminophen 5/325 mg Tablet PO PRN ×2 (14:46→16:52)
[2017-08-26] MEDS: Simethicone Chewable 80 MG TAB PO PRN (16:53)
[2017-08-26] MEDS: Ibuprofen 800 MG TAB PO PRN ×2 (17:45→22:29)
[2017-08-27] MEDS: Simethicone Chewable 80 MG TAB PO PRN ×3 (00:04→20:01)
[2017-08-27] MEDS: HYDROcodone/Acetaminophen 5/325 mg Tablet PO PRN ×3 (00:52→19:59)
[2017-08-27] MEDS: Ketorolac Tromethamine 30 MG/ML VIAL IVP SCH ×2 (00:55→06:20)
--- NOTE | 2017-08-27 05:45 | PDOC.PP ---
Post Progress Note Post Day #: 2 Subjective: Patient reports sleeping well last night and feels much better today. Pain was controlled with toradol yesterday and patient is transitioning to PO medications. Patient felt nauseous after taking them but she thinks this is because she had an empty stomach at the time. has been improving some. Currently bottle/breast feeding. PO intake tolerated: yes Flatus: yes Ambulation: yes Vital Signs (12 hours) Temp Pulse Resp BP 08/26/17 23:58 98.6 F 89 20 113/61 08/26/17 21:10 98.0 F 91 20 124/58 L 08/26/17 17:45 98.0 F 100 20 133/61 Weight Weight 87.09 kg - Physical Examination General: NAD Cardiovascular: no m/r/g, RRR Respiratory: clear to auscultation bilaterally, non-labored breathing Abdominal: + bowel sounds, appropriately TTP Extremities: negative homans (B) Skin: CS incision dry & intact Neurological: no gross focal deficits Psychiatric: A&Ox3, normal affect Result Diagrams: 08/26/17 05:07 08/25/17 10:46 Additional Labs: Post Labs Blood Type O POSITIVE 08/25/17 10:46 Hep Bs Antigen Non-Reactive S/CO (NonReactive) 08/25/17 10:46 (1) care and examination Code(s): Z39.2 - ENCOUNTER FOR ROUTINE FOLLOW-UP Status: Acute (2) delivery delivered Code(s): O82 - ENCOUNTER FOR DELIVERY WITHOUT INDICATION Status: Acute (3) Iron deficiency anemia Code(s): D50.9 - IRON DEFICIENCY ANEMIA, UNSPECIFIED Status: Acute QualifierTitle: Iron deficiency anemia type: unspecified iron deficiency Qualified Code(s): D50.9 - Iron deficiency anemia, unspecified (4) Proteinuria affecting Code(s): O12.10 - GESTATIONAL PROTEINURIA, UNSPECIFIED TRIMESTER Status: Acute QualifierTitle: Trimester: third trimester Qualified Code(s): O12.13 - Gestational proteinuria, third trimester (5) Gestational diabetes mellitus (GDM) controlled on oral hypoglycemic drug Code(s): O24.415 - GESTATNL DIABETES IN PREG, CTRL BY ORAL HYPOGLYCEMIC DRUGS Status: Acute QualifierTitle: Trimester: third trimester Qualified Code(s): O24.415 - Gestational diabetes mellitus in , controlled by oral hypoglycemic drugs (6) Tobacco abuse Code(s): Z72.0 - TOBACCO USE Status: Acute - Assessment/Plan 27 y/o now P4004 delivered via rLTCS @ 38.0 WGA on 08/25. 1. PPD #2 - BELL SPINNER pump discontinued yesterday. Was on toradol. Transitioning to PO medications today. - Voiding and eating well - Encouraged breast feeding, consultation if available. Currently breast/bottle feeding. - Pt desires circumcision for the - Plan to refer for post- tubal as pt desires permanent contraception 2. A2GDM - Pt was on Metformin during , but was non-compliant with medication and with glucose checks - PP blood glucose WNL, will d/c metformin and plan for 6 week pp check 3. Anemia of - H&H yesterday morning 8.8/27.4 - Continue iron and PNV 4. Tobacco abuse - Encourage cessation 5. Proteinuria - Monitor outpatient Disposition: Improving pain control, plan for discharge tomorrow <Nicky Carl - Last Filed: 08/27/17 10:33> Vital Signs (12 hours) Temp Pulse Resp BP Pulse Ox 08/27/17 17:26 98.9 F 99 22 H 136/66 100 08/27/17 13:45 98.8 F 90 20 08/27/17 10:55 98.8 F 90 20 125/60 98 08/27/17 08:55 98.6 F 88 18 Weight Weight 87.09 kg Result Diagrams: 08/26/17 05:07 08/25/17 10:46 Additional Labs: Post Labs Blood Type O POSITIVE 08/25/17 10:46 Hep Bs Antigen Non-Reactive S/CO (NonReactive) 08/25/17 10:46 <Mone Gomez - Last Filed: 08/27/17 19:39> Attending Addendum - Attending Addendum Date/Time: 08/27/171936 I personally evaluated the patient and discussed the management with Dr. Barney, Dr. Montes, and Dr. Carl I agree with the History, Examination, Assessment and Plan documented above with any addition or exceptions noted below. 27 yo female s/p RLTCS. POD#2 Doing well. Has been on IV pain meds for pain management. Will transition to PO today. Monitor throughout the day. VS reviewed. Exam stable. Incision healing well. No s/sx of wound complications. Likely d/c in AM. Will need 6 wk 2 hour gtt. Claritza <Mone Gomez - Last Filed: 08/27/17 19:39>
[2017-08-27] MEDS: Ibuprofen 800 MG TAB PO PRN (06:29)
[2017-08-27] MEDS ORDERED: Loratadine 10 MG TAB PO SCH (09:00)
[2017-08-27] MEDS: Prenatal Vitamin 1 TAB PO SCH (10:30)
[2017-08-27] MEDS: Ferrous Sulfate 325 MG TAB PO SCH ×2 (10:30→21:22)
[2017-08-27] MEDS: Docusate Calcium (SURFAK) 240 MG CAP PO SCH ×2 (10:33→21:24)
[2017-08-27] MEDS: Ibuprofen 800 MG TAB PO SCH ×2 (14:03→21:22)
[2017-08-28] MEDS: Ibuprofen 800 MG TAB PO SCH ×2 (06:05→14:13)
--- NOTE | 2017-08-28 07:29 | PDOC.LDPN ---
Labor & Delivery Progress Note - Subjective Subjective: other (Some tenderness from the incision site. ) - Objective General: NAD, resting
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
[2017-08-28] MEDS: Ferrous Sulfate 325 MG TAB PO SCH (07:58)
[2017-08-28] MEDS: Prenatal Vitamin 1 TAB PO SCH (07:58)
[2017-08-28] MEDS: Docusate Calcium (SURFAK) 240 MG CAP PO SCH (07:58)
[2017-08-28 08:36] VITALS: BP 128/75; TEMP 97.9
== END 2017-08-28 14:59 | disposition home or self-care (01) | DRG 766 ==
LOC: L&D 10:04 → EEVIPCON 10:04 → 3SW 15:59
PROVIDERS: ADMIT Student in an Organized Health Care Education/Training Program; ATTEND Student in an Organized Health Care Education/Training Program
PROC: 10D00Z1 Extraction of Products of Conception, Low, Open Approach (ICD-10-PCS; principal; 2017-08-25)
DX: O34.211 Maternal care for low transverse scar from previous cesarean delivery (principal); Z3A.38 38 weeks gestation of pregnancy; Z37.0 Single live birth; O24.425 Gestational diabetes mellitus in childbirth, controlled by oral hypoglycemic drugs; O99.02 Anemia complicating childbirth; D50.9 Iron deficiency anemia, unspecified; O12.14 Gestational proteinuria, complicating childbirth; O99.62 Diseases of the digestive system complicating childbirth; O34.13 Maternal care for benign tumor of corpus uteri, third trimester; D25.2 Subserosal leiomyoma of uterus; K66.0 Peritoneal adhesions (postprocedural) (postinfection); Z91.14 Patient's other noncompliance with medication regimen
CPT/HCPCS: 36415; 36416; 51702; 82947; 85027; 86780; 86850; 86900; 86901; 87340; 90715; J1100; J1885; J2001; J2175; J2270; J2274; J2310; J2405; J2590; J3010; J3490

== ENCOUNTER 2017-10-15 20:56 | Emergency (ER) | payer OTHER ==
[~2017-10-15 20:56] MED LIST changes: -Bicitra 30 ML UDCUP PO SCH; -CEFAZOLIN/Water 2 GM/20 ML SYRINGE SLOW IVP SCH; +ISOVUE-370 76%-LOCM 1 ML ONE; -Ondansetron HCl/PF 4 MG/2 ML Vial IVP PRN
[2017-10-15 21:33] LABS: Bilirubin Negative (Negative); Blood, Urine Negative (Negative); Clarity CLEAR (Clear); Glucose, Urine (Dipstick) Negative (Negative); Leukocyte Negative (Negative); Nitrite Negative (Negative); Protein, Urine (Dipstick) Negative (Neg-Trace); Specific Gravity, Urine 1.019 (1.002-1.036); Urobilinogen 0.2 mg/dL (0.2-1.0)
[2017-10-15] MEDS ORDERED: Ketorolac Tromethamine 30 MG/ML VIAL ONE (21:49)
[2017-10-15] MEDS ORDERED: Ondansetron ODT 4 MG TAB ONE (21:49)
[2017-10-15 22:15] LABS: Pregnancy Test - Urine (BHCG) Negative (Negative); Pregu Control Background? CLEAR/WHITE (CLR/WHITE); Pregu Control Bar Appear? YES (CONTROL BAR); Specific Gravity 1.019 (1.002-1.036)
[2017-10-15 22:18] LABS: #Basophils 0.1 thou/uL (0.0-0.2); #Eosinphils 0.2 thou/uL (0.0-0.7); #Lymphocytes 3.1 thou/uL (1.20-3.40); #Monocytes 0.7 thou/uL (0.11-0.59); #Neutrophils 6.1 thou/uL (1.40-6.50); %Basophils 0.7 % (0.0-1.0); %Eosinophils 1.9 % (0.0-10.0); %Lymphocytes 30.5 % (21.0-51.0); %Monocytes 6.4 % (0.0-10.0); %Neutrophils 60.5 % (42.0-75.0); Hemoglobin 10.3 g/dL (12.0-16.0); Mean Corpuscular HGB CONC 31.9 g/dL (32.0-36.0); Mean Corpuscular Hemoglobin 22.9 pg (27.0-31.0); Mean Platelet Volume 9.1 fL (7.4-10.4); Platelet Count 310 thou/uL (130-400); RBC Distribution Width 13.8 % (11.5-14.5); White Blood Cell (WBC) Count 10.1 thou/uL (4.8-10.8)
[2017-10-15 22:35] LABS: ALT (SGPT) 10 U/L (8-55); AST (SGOT) 12 U/L (5-34); Alkaline Phosphatase 80 U/L (40-150); Anion Gap 10 mmol/L (10-20); BUN (Urea Nitrogen) 10 mg/dL (7.0-18.7); Bilirubin, Total 0.2 mg/dL (0.2-1.2); Calc. Creatinine Clearance 0 mL/min (70-130); Calcium 8.8 mg/dL (7.8-10.44); Carbon Dioxide 23 mmol/L (22-29); Chloride 108 mmol/L (98-107); Estimated GFR-MDRD Greater than 90; Globulin 2.9 g/dL (2.4-3.5); Glucose 106 mg/dL (70-105); Lipase 33 U/L (8-78); Potassium 3.9 mmol/L (3.5-5.1); Protein, Total 6.9 g/dL (6.0-8.3); Sodium 137 mmol/L (136-145)
--- NOTE | 2017-10-15 23:26 | CT ---
CT ABDOMEN AND PELVIS WITH IV CONTRAST: History: Abdominal pain. FINDINGS: Lung bases are clear. The liver, spleen, kidneys, adrenal glands, and pancreas have a normal CT appea senait. No enlarged lymph nodes or free fluid. Urinary bladder is unremarkable. Follicles arise from the ovaries. Lack of oral contrast limits evaluation of the bowel. No evidence o f obstruction or inflammation. IMPRESSION: No significant abnormalities are demonstrated. POS: [facility]
== END 2017-10-15 23:38 | disposition home or self-care (01) ==
LOC: ERS 20:56
DX: R10.31 Right lower quadrant pain (principal); I10 Essential (primary) hypertension; F17.210 Nicotine dependence, cigarettes, uncomplicated
CPT/HCPCS: 74177; 80053; 81003; 81025; 83690; 85025; 96361; 96372; 96374; J1885; Q0162

== ENCOUNTER 2017-10-21 20:31 | Emergency (ER) | payer OTHER | END 2017-10-21 21:23 | disposition home or self-care (01) | LOC: ERS 20:31 | DX: J02.9 Acute pharyngitis, unspecified (principal); F17.210 Nicotine dependence, cigarettes, uncomplicated; I10 Essential (primary) hypertension | CPT/HCPCS: 99282 ==

== ENCOUNTER 2017-11-29 02:50 | Emergency (ER) | payer OTHER | END 2017-11-29 03:47 | disposition home or self-care (01) | LOC: ERS 02:50 | DX: J06.9 Acute upper respiratory infection, unspecified (principal); I10 Essential (primary) hypertension; F41.9 Anxiety disorder, unspecified; F31.9 Bipolar disorder, unspecified; F20.9 Schizophrenia, unspecified; F17.210 Nicotine dependence, cigarettes, uncomplicated | CPT/HCPCS: 99283 ==

== ENCOUNTER 2018-01-05 22:56 | Emergency (ER) | payer OTHER ==
[2018-01-05 23:34] LABS: BHCG - Serum Negative (NEGATIVE); Pregs Control Background? CLEAR/WHITE (CLR/WHITE); Pregs Control Bar Appear? YES (CONTROL BAR)
[2018-01-05 23:43] LABS: #Basophils 0.1 thou/uL (0.0-0.2); #Eosinphils 0.1 thou/uL (0.0-0.7); #Lymphocytes 2.5 thou/uL (1.20-3.40); #Monocytes 0.7 thou/uL (0.11-0.59); #Neutrophils 6.7 thou/uL (1.40-6.50); %Basophils 0.8 % (0.0-1.0); %Eosinophils 1.2 % (0.0-10.0); %Lymphocytes 24.7 % (21.0-51.0); %Monocytes 6.6 % (0.0-10.0); %Neutrophils 66.6 % (42.0-75.0); Hemoglobin 12.2 g/dL (12.0-16.0); Mean Corpuscular HGB CONC 31.6 g/dL (32.0-36.0); Mean Corpuscular Hemoglobin 22.1 pg (27.0-31.0); Mean Corpuscular Volume 69.9 fL (78.0-98.0); Mean Platelet Volume 9.6 fL (7.4-10.4); Platelet Count 352 thou/uL (130-400); RBC Distribution Width 15.2 % (11.5-14.5); Red Blood Cell (RBC) Count 5.52 mill/uL (4.20-5.40)
[2018-01-06] MEDS ORDERED: Lidocaine Viscous Sol 2% 15 ml UD Cup ONE (00:45)
[2018-01-06] MEDS ORDERED: Mag-Al 1200 mg/1200 mg/30 ML UDCUP ONE (00:45)
[2018-01-06 02:08] LABS: Bilirubin Negative (Negative); Blood, Urine Negative (Negative); Clarity CLEAR (Clear); Glucose, Urine (Dipstick) Negative (Negative); Leukocyte Negative (Negative); Nitrite Negative (Negative); Protein, Urine (Dipstick) 100 mg/dL (Neg-Trace); Specific Gravity, Urine 1.029 (1.002-1.036)
[2018-01-06 02:11] LABS: Bacteria/HPF None Seen HPF (None Seen); Hyaline Casts/LPF 0-3 HYALINE CAST LPF (0-3 Hyaline); Pathc Cast-AUWi Flag 0.14 (0-2.49); Squamous Epithelial 0-3 HPF (0-3); WBC/HPF None Seen HPF (0-3)
[2018-01-07 21:14] LABS: Chlamydia by PCR Not Detected (NotDetected); GC by PCR Not Detected (NotDetected)
== END 2018-01-06 02:41 | disposition home or self-care (01) ==
LOC: ERS 22:56
DX: N93.9 Abnormal uterine and vaginal bleeding, unspecified (principal); R10.2 Pelvic and perineal pain; I10 Essential (primary) hypertension; F17.210 Nicotine dependence, cigarettes, uncomplicated
CPT/HCPCS: 36415; 81003; 81015; 84702; 84703; 85025; 87480; 87491; 87510; 87591; 87660; 99284

== ENCOUNTER 2018-08-06 20:31 | Emergency (ER) | payer OTHER, SELFPAY ==
--- NOTE | 2018-08-06 21:17 | RAD ---
EXAM: Single view of the chest HISTORY: Chest pain and palpitations COMPARISON: 04/23/2015 FINDINGS: Single view of the chest shows a normal sized cardiomediastinal silhouette. There is no zia dence of consolidation, mass, or pleural effusion. The bones are unremarkable. IMPRESSION: No evidence of acute cardiopulmonary disease
[2018-08-06 22:33] LABS: #Basophils 0.1 thou/uL (0.0-0.2); #Eosinphils 0.2 thou/uL (0.0-0.7); #Lymphocytes 3.3 thou/uL (1.20-3.40); #Monocytes 0.9 thou/uL (0.11-0.59); #Neutrophils 6.1 thou/uL (1.40-6.50); %Basophils 0.5 % (0.0-1.0); %Eosinophils 1.5 % (0.0-10.0); %Monocytes 8.7 % (0.0-10.0); %Neutrophils 58.3 % (42.0-75.0); Hemoglobin 10.5 g/dL (12.0-16.0); Mean Corpuscular HGB CONC 30.9 g/dL (32.0-36.0); Mean Corpuscular Hemoglobin 22.5 pg (27.0-31.0); Mean Corpuscular Volume 72.7 fL (78.0-98.0); Mean Platelet Volume 8.7 fL (7.4-10.4); Platelet Count 283 thou/uL (130-400); RBC Distribution Width 14.1 % (11.5-14.5); Red Blood Cell (RBC) Count 4.66 mill/uL (4.20-5.40); White Blood Cell (WBC) Count 10.5 thou/uL (4.8-10.8)
[2018-08-06 22:41] LABS: BHCG - Serum Negative (NEGATIVE); Pregs Control Background? CLEAR/WHITE (CLR/WHITE); Pregs Control Bar Appear? YES (CONTROL BAR)
[2018-08-06 22:58] LABS: ALT (SGPT) 12 U/L (8-55); AST (SGOT) 12 U/L (5-34); Albumin 3.8 g/dL (3.5-5.0); Alkaline Phosphatase 65 U/L (40-150); Anion Gap 9 mmol/L (10-20); BUN (Urea Nitrogen) 10 mg/dL (7.0-18.7); Bilirubin, Total 0.2 mg/dL (0.2-1.2); Calc. Creatinine Clearance 0 mL/min (70-130); Calcium 8.7 mg/dL (7.8-10.44); Carbon Dioxide 26 mmol/L (22-29); Chloride 106 mmol/L (98-107); Estimated GFR-MDRD Greater than 90; Globulin 2.8 g/dL (2.4-3.5); Glucose 148 mg/dL (70-105); Protein, Total 6.6 g/dL (6.0-8.3); Sodium 137 mmol/L (136-145)
== END 2018-08-06 23:49 | disposition home or self-care (01) ==
LOC: ERS 20:31
DX: R00.2 Palpitations (principal); F41.9 Anxiety disorder, unspecified; F31.9 Bipolar disorder, unspecified; F20.9 Schizophrenia, unspecified; F17.210 Nicotine dependence, cigarettes, uncomplicated; K21.9 Gastro-esophageal reflux disease without esophagitis; I10 Essential (primary) hypertension
CPT/HCPCS: 71045; 80053; 84484; 84703; 85025; 93005

== ENCOUNTER 2018-10-03 21:11 | Emergency (ER) | payer SELFPAY ==
[2018-10-03] MEDS ORDERED: Ondansetron ODT 4 MG TAB ONE (21:27)
[2018-10-03] MEDS ORDERED: Dicyclomine 20 MG TAB ONE (21:51)
[2018-10-03 21:58] LABS: #Basophils 0.1 thou/uL (0.0-0.2); #Eosinphils 0.3 thou/uL (0.0-0.7); #Lymphocytes 2.4 thou/uL (1.20-3.40); #Monocytes 0.9 thou/uL (0.11-0.59); #Neutrophils 4.6 thou/uL (1.40-6.50); %Basophils 0.8 % (0.0-1.0); %Eosinophils 3.2 % (0.0-10.0); %Lymphocytes 29.3 % (21.0-51.0); %Monocytes 10.7 % (0.0-10.0); %Neutrophils 56.1 % (42.0-75.0); Hemoglobin 11.7 g/dL (12.0-16.0); Mean Corpuscular HGB CONC 31.6 g/dL (32.0-36.0); Mean Corpuscular Hemoglobin 22.5 pg (27.0-31.0); Mean Corpuscular Volume 71.2 fL (78.0-98.0); Mean Platelet Volume 8.9 fL (7.4-10.4); Platelet Count 319 thou/uL (130-400); RBC Distribution Width 13.9 % (11.5-14.5); Red Blood Cell (RBC) Count 5.22 mill/uL (4.20-5.40); White Blood Cell (WBC) Count 8.2 thou/uL (4.8-10.8)
[2018-10-03 22:04] LABS: Bacteria/HPF 2+ HPF (None Seen); Bilirubin Negative (Negative); Blood, Urine 1+ (Negative); Clarity Clear (Clear); Glucose, Urine (Dipstick) Normal (Negative); Leukocyte Negative Leu/uL (Negative); Mucous/LPF 1+ LPF (<2+); Nitrite Negative (Negative); Protein, Urine (Dipstick) 100 mg/dL (Neg-Trace); WBC/HPF 0-3 HPF (0-3)
[2018-10-03 22:06] LABS: Pregnancy Test - Urine (BHCG) Negative (Negative); Pregu Control Background? CLEAR/WHITE (CLR/WHITE); Pregu Control Bar Appear? YES (CONTROL BAR)
[2018-10-03 22:17] LABS: ALT (SGPT) 28 U/L (8-55); AST (SGOT) 28 U/L (5-34); Albumin 4.4 g/dL (3.5-5.0); Alkaline Phosphatase 69 U/L (40-150); Anion Gap 12 mmol/L (10-20); BHCG - Serum Negative (NEGATIVE); BUN (Urea Nitrogen) 7 mg/dL (7.0-18.7); Bilirubin, Total 0.2 mg/dL (0.2-1.2); Calc. Creatinine Clearance 0 mL/min (70-130); Calcium 9.4 mg/dL (7.8-10.44); Carbon Dioxide 24 mmol/L (22-29); Chloride 107 mmol/L (98-107); Estimated GFR-MDRD Greater than 90; Globulin 3.1 g/dL (2.4-3.5); Glucose 107 mg/dL (70-105); Potassium 3.8 mmol/L (3.5-5.1); Pregs Control Background? CLEAR/WHITE (CLR/WHITE); Pregs Control Bar Appear? YES (CONTROL BAR); Protein, Total 7.5 g/dL (6.0-8.3); Sodium 139 mmol/L (136-145)
[2018-10-03] MEDS ORDERED: Mag-Al 1200 mg/1200 mg/30 ML UDCUP ONE (22:48)
[2018-10-03] MEDS ORDERED: Lidocaine Viscous Sol 2% 15 ml UD Cup ONE (22:48)
[2018-10-03] MEDS ORDERED: Ketorolac Tromethamine 30 MG/ML VIAL ONE (22:55)
== END 2018-10-03 23:15 | disposition home or self-care (01) ==
LOC: ERS 21:11
DX: K52.9 Noninfective gastroenteritis and colitis, unspecified (principal); K21.9 Gastro-esophageal reflux disease without esophagitis; I10 Essential (primary) hypertension; F41.9 Anxiety disorder, unspecified; F31.9 Bipolar disorder, unspecified; F20.9 Schizophrenia, unspecified; F17.210 Nicotine dependence, cigarettes, uncomplicated
CPT/HCPCS: 80053; 81003; 81015; 81025; 84703; 85025; 87086; 96361; 96374; J1885; Q0162

== ENCOUNTER 2019-02-06 02:54 | Emergency (ER) | payer SELFPAY | END 2019-02-06 04:20 | disposition left against medical advice (07) | LOC: ERS 02:54 | DX: Z53.21 Procedure and treatment not carried out due to patient leaving prior to being seen by health care provider (principal) ==

== ENCOUNTER 2019-03-21 11:42 | Emergency (ER) | payer BC, SELFPAY ==
[2019-03-21] MEDS ORDERED: Ondansetron ODT 4 MG TAB ONE (11:49)
[2019-03-21 12:28] LABS: #Lymphocytes 1.4 thou/uL (1.20-3.40); #Monocytes 0.4 thou/uL (0.11-0.59); #Neutrophils 7.9 thou/uL (1.40-6.50); %Basophils 0.1 % (0.0-1.0); %Eosinophils 0.5 % (0.0-10.0); %Lymphocytes 14.5 % (21.0-51.0); %Monocytes 4.4 % (0.0-10.0); %Neutrophils 80.5 % (42.0-75.0); Hemoglobin 11.7 g/dL (12.0-16.0); Mean Corpuscular HGB CONC 31.1 g/dL (32.0-36.0); Mean Corpuscular Hemoglobin 22.5 pg (27.0-31.0); Mean Corpuscular Volume 72.3 fL (78.0-98.0); Mean Platelet Volume 8.7 fL (7.4-10.4); Platelet Count 306 thou/uL (130-400); Red Blood Cell (RBC) Count 5.21 mill/uL (4.20-5.40); White Blood Cell (WBC) Count 9.8 thou/uL (4.8-10.8)
[2019-03-21 12:41] LABS: BHCG - Serum Negative (NEGATIVE); Pregs Control Background? CLEAR/WHITE (CLR/WHITE); Pregs Control Bar Appear? YES (CONTROL BAR)
[2019-03-21 12:48] LABS: ALT (SGPT) 14 U/L (8-55); AST (SGOT) 15 U/L (5-34); Alkaline Phosphatase 65 U/L (40-110); Anion Gap 10 mmol/L (10-20); BUN (Urea Nitrogen) 8 mg/dL (7.0-18.7); Bilirubin, Total 0.4 mg/dL (0.2-1.2); Calc. Creatinine Clearance 0 mL/min (70-130); Calcium 8.1 mg/dL (7.8-10.44); Carbon Dioxide 22 mmol/L (22-29); Chloride 108 mmol/L (98-107); Estimated GFR-MDRD Greater than 90; Glucose 90 mg/dL (70-105); Lipase 17 U/L (8-78); Potassium 3.9 mmol/L (3.5-5.1); Sodium 136 mmol/L (136-145)
[2019-03-21 12:52] LABS: Hypochromia SLIGHT = 6-15 cells (100X) (0-5/hpf); MDiff Complete? YES; Microcytosis SLIGHT = 6-15 cells (100X) (0-5/hpf); Platelet Morphology Comment Appears Adequate; Polychromasia SLIGHT = 2-3 cells (100X) (0-2/hpf); Target Cells SLIGHT = 2-5 cells (100X) (0-1/hpf); Tear Drops SLIGHT = 2-5 cells (100X) (0-1/hpf)
[2019-03-21 13:00] LABS: Bacteria/HPF None Seen HPF (None Seen); Bilirubin Negative (Negative); Blood, Urine Trace (Negative); Clarity Clear (Clear); Glucose, Urine (Dipstick) Normal (Negative); Leukocyte Negative Leu/uL (Negative); Nitrite Negative (Negative); Protein, Urine (Dipstick) 100 mg/dL (Neg-Trace); RBC/HPF 0-3 HPF (0-3); Urobilinogen Normal mg/dL (Less than 2); WBC/HPF 0-3 HPF (0-3)
[2019-03-21] MEDS ORDERED: Ketorolac Tromethamine 30 MG/ML VIAL ONE (14:57)
== END 2019-03-21 15:25 | disposition home or self-care (01) ==
LOC: ERS 11:42
DX: K52.9 Noninfective gastroenteritis and colitis, unspecified (principal); R11.2 Nausea with vomiting, unspecified; I10 Essential (primary) hypertension; K21.9 Gastro-esophageal reflux disease without esophagitis; F41.9 Anxiety disorder, unspecified; F31.9 Bipolar disorder, unspecified; F20.9 Schizophrenia, unspecified; F17.210 Nicotine dependence, cigarettes, uncomplicated; Z79.899 Other long term (current) drug therapy
CPT/HCPCS: 36415; 80053; 81003; 81015; 83690; 84703; 85025; 96361; 96374; J1885; Q0162

== ENCOUNTER 2019-03-30 05:56 | Emergency (ER) | payer BC ==
[2019-03-30] MEDS ORDERED: Ondansetron PF 4 MG/2 ML Vial ONE (06:16)
[2019-03-30] MEDS ORDERED: Ketorolac Tromethamine 30 MG/ML VIAL ONE (06:19)
[2019-03-30 06:37] LABS: #Basophils 0.1 thou/uL (0.0-0.2); #Lymphocytes 2.2 thou/uL (1.20-3.40); #Monocytes 0.4 thou/uL (0.11-0.59); #Neutrophils 5.6 thou/uL (1.40-6.50); %Basophils 0.7 % (0.0-1.0); %Eosinophils 0.4 % (0.0-10.0); %Lymphocytes 26.4 % (21.0-51.0); %Monocytes 4.9 % (0.0-10.0); %Neutrophils 67.5 % (42.0-75.0); Hemoglobin 12.1 g/dL (12.0-16.0); Mean Corpuscular HGB CONC 31.4 g/dL (32.0-36.0); Mean Corpuscular Hemoglobin 22.2 pg (27.0-31.0); Mean Corpuscular Volume 70.7 fL (78.0-98.0); Mean Platelet Volume 8.9 fL (7.4-10.4); Platelet Count 378 thou/uL (130-400); RBC Distribution Width 14.2 % (11.5-14.5); Red Blood Cell (RBC) Count 5.43 mill/uL (4.20-5.40); White Blood Cell (WBC) Count 8.3 thou/uL (4.8-10.8)
[2019-03-30 06:55] LABS: ALT (SGPT) 25 U/L (8-55); AST (SGOT) 25 U/L (5-34); Albumin 4.5 g/dL (3.5-5.0); Alkaline Phosphatase 61 U/L (40-110); Anion Gap 12 mmol/L (10-20); BUN (Urea Nitrogen) Less than 4 mg/dL (7.0-18.7); Bilirubin, Total Less than 0.2 mg/dL (0.2-1.2); Calc. Creatinine Clearance 0 mL/min (70-130); Calcium 9.2 mg/dL (7.8-10.44); Carbon Dioxide 22 mmol/L (22-29); Chloride 110 mmol/L (98-107); Estimated GFR-MDRD Greater than 90; Globulin 3.4 g/dL (2.4-3.5); Glucose 128 mg/dL (70-105); Lipase 36 U/L (8-78); Potassium 3.8 mmol/L (3.5-5.1); Protein, Total 7.9 g/dL (6.0-8.3); Sodium 140 mmol/L (136-145)
[2019-03-30 06:57] LABS: BHCG - Serum POSITIVE (NEGATIVE); Pregs Control Background? CLEAR/WHITE (CLR/WHITE); Pregs Control Bar Appear? YES (CONTROL BAR)
[2019-03-30 07:22] LABS: Bacteria/HPF 1+ HPF (None Seen); Bilirubin Negative (Negative); Blood, Urine Trace (Negative); Clarity Clear (Clear); Glucose, Urine (Dipstick) Normal (Negative); Leukocyte Negative Leu/uL (Negative); Nitrite Negative (Negative); Protein, Urine (Dipstick) 100 mg/dL (Neg-Trace); RBC/HPF 0-3 HPF (0-3); Squamous Epithelial 0-3 HPF (0-3); Urobilinogen Normal mg/dL (Less than 2); WBC/HPF 0-3 HPF (0-3)
--- NOTE | 2019-03-30 08:50 | ULT ---
PELVIC ULTRASOUND INCLUDING TRANSABDOMINAL AND TRANSVAGINAL AND VASCULAR DUPLEX WITH COLOR AND SPECTR AL DOPPLER IMAGING: HISTORY: History of and abdominal pain. HCG is 263.21. FINDINGS: Uterus measures 89 x 6.8 x 4.7 cm. The endometrium is somewhat thickened and echogenic. This appear s to be much more prominent on the transvaginal imaging than the transabdominal imaging. Right ovary 1.8 x 2.8 x 3.6 cm. Left ovary 2.1 x 2.8 x 3.6 cm. 1.3 x 2.2 cm corpus luteum cyst on t he right ovary. Follicle cyst on the left ovary 1.4 x 2.5 cm. No abscess or abnormal fluid collecti on. No evidence for an intrauterine gestational sac. No convincing ultrasound evidence for an ectop ic . IMPRESSION: Somewhat thickened endometrium. No convincing evidence for an intrauterine or extrauterine . Continued followup serum HCGs is recommended. Small ovarian cysts/follicles. POS: [facility]
== END 2019-03-30 09:15 | disposition home or self-care (01) ==
LOC: ERS 05:56
DX: O26.891 Other specified pregnancy related conditions, first trimester (principal); R10.84 Generalized abdominal pain; O21.9 Vomiting of pregnancy, unspecified; O99.89 Other specified diseases and conditions complicating pregnancy, childbirth and the puerperium; R19.7 Diarrhea, unspecified; O99.611 Diseases of the digestive system complicating pregnancy, first trimester; K21.9 Gastro-esophageal reflux disease without esophagitis; O10.911 Unspecified pre-existing hypertension complicating pregnancy, first trimester; O99.331 Smoking (tobacco) complicating pregnancy, first trimester; F17.210 Nicotine dependence, cigarettes, uncomplicated; Z91.14 Patient's other noncompliance with medication regimen; Z79.899 Other long term (current) drug therapy; Z3A.01 Less than 8 weeks gestation of pregnancy
CPT/HCPCS: 36415; 76856; 80053; 81003; 81015; 83690; 84702; 84703; 85025; 86900; 86901; 96361; 96374; 96375; J1885; J2405

== ENCOUNTER 2019-04-20 09:48 | Emergency (ER) | payer BC, MEDICAID ==
[2019-04-20] MEDS ORDERED: HYDROcodone/Acetaminophen 5/325 mg Tablet ONE (11:11)
[2019-04-20 11:27] LABS: #Basophils 0.1 thou/uL (0.0-0.2); #Eosinphils 0.1 thou/uL (0.0-0.7); #Lymphocytes 2.8 thou/uL (1.20-3.40); #Monocytes 0.5 thou/uL (0.11-0.59); %Basophils 0.6 % (0.0-1.0); %Eosinophils 1.4 % (0.0-10.0); %Lymphocytes 29.4 % (21.0-51.0); %Monocytes 5.3 % (0.0-10.0); %Neutrophils 63.3 % (42.0-75.0); Hemoglobin 11.4 g/dL (12.0-16.0); Mean Corpuscular HGB CONC 31.3 g/dL (32.0-36.0); Mean Corpuscular Hemoglobin 22.7 pg (27.0-31.0); Mean Corpuscular Volume 72.5 fL (78.0-98.0); Mean Platelet Volume 8.8 fL (7.4-10.4); Platelet Count 322 thou/uL (130-400); RBC Distribution Width 14.1 % (11.5-14.5); Red Blood Cell (RBC) Count 5.01 mill/uL (4.20-5.40); White Blood Cell (WBC) Count 9.4 thou/uL (4.8-10.8)
[2019-04-20] MEDS ORDERED: Ondansetron ODT 4 MG TAB ONE (12:10)
--- NOTE | 2019-04-20 12:30 | ULT ---
Pelvic sonogram transabdominal and transvaginal imaging with duplex evaluation HISTORY: Pelvic pain and bleeding. Recent miscarriage. FINDINGS: Urinary bladder is decompressed. Uterus has a heterogeneous echotexture, is retroverted, an d is 8.6 cm greatest length. Endometrium thickened at 1.8 cm. Small amount of fluid and thickened endometrium within the lower jose rine segment. Minimal free fluid in the cul-de-sac. Right ovary is 2.7 cm with a follicle and good color and spectral Doppler flow. Right ovary not visua lized with transabdominal or transvaginal imaging. IMPRESSION: Thickened endometrium with small amount of fluid and thickening in the lower uterine segm ent. Minimal free fluid in the cul-de-sac.
== END 2019-04-20 13:11 | disposition home or self-care (01) ==
LOC: ERS 09:48
DX: O03.9 Complete or unspecified spontaneous abortion without complication (principal); R11.2 Nausea with vomiting, unspecified; K21.9 Gastro-esophageal reflux disease without esophagitis; I10 Essential (primary) hypertension; F41.9 Anxiety disorder, unspecified; F31.9 Bipolar disorder, unspecified; F20.9 Schizophrenia, unspecified; F17.210 Nicotine dependence, cigarettes, uncomplicated; Z79.899 Other long term (current) drug therapy
CPT/HCPCS: 36415; 76856; 84702; 85025; 86900; 86901; 88305; Q0162

== ENCOUNTER 2020-07-31 14:03 | Emergency (ER) | payer BC, MEDICAID ==
[2020-07-31] MEDS ORDERED: Acetaminophen 325 MG TAB ONE (14:42)
== END 2020-07-31 14:07 | disposition home or self-care (01) ==
LOC: ERS 14:03
DX: O99.891 Other specified diseases and conditions complicating pregnancy (principal); R51.9 Headache, unspecified; O24.311 Unspecified pre-existing diabetes mellitus in pregnancy, first trimester; O10.911 Unspecified pre-existing hypertension complicating pregnancy, first trimester; E11.9 Type 2 diabetes mellitus without complications; O99.331 Smoking (tobacco) complicating pregnancy, first trimester; F17.210 Nicotine dependence, cigarettes, uncomplicated; Z3A.01 Less than 8 weeks gestation of pregnancy; Y04.2XXA Assault by strike against or bumped into by another person, initial encounter
CPT/HCPCS: 99284

== ENCOUNTER 2021-10-30 23:36 | Emergency (ER) | payer OTHER ==
[2021-10-31 00:19] LABS: Amphetamine Not Detected (NotDetected); Barbiturates Screen Not Detected (NotDetected); Benzodiazepine Screen Not Detected (NotDetected); Cocaine Metabolite Screen Not Detected (NotDetected); Methadone Not Detected (NotDetected); Methamphetamine Not Detected (NotDetected); Opiate Screen Not Detected (NotDetected); Oxycodone Screen Not Detected (NotDetected); Phencyclidine (PCP) Not Detected (NotDetected); THC/Cannabinoid Screen Not Detected (NotDetected); Tricyclic Screen Not Detected (NotDetected)
[2021-10-31 00:24] LABS: Pregnancy Test - Urine (BHCG) Negative (Negative); Pregu Control Background? CLEAR/WHITE (CLR/WHITE); Pregu Control Bar Appear? YES (CONTROL BAR); Specific Gravity 1.038 (1.002-1.036)
[2021-10-31 00:32] LABS: Hemoglobin 12.2 g/dL (12.0-16.0); Mean Corpuscular HGB CONC 31.3 g/dL (32.0-36.0); Mean Corpuscular Hemoglobin 22.7 pg (27.0-31.0); Mean Corpuscular Volume 72.5 fL (78.0-98.0); Mean Platelet Volume 9.7 fL (7.4-10.4); Platelet Count 340 thou/uL (130-400); Red Blood Cell (RBC) Count 5.39 mill/uL (4.20-5.40); White Blood Cell (WBC) Count 12.2 thou/uL (4.8-10.8)
[2021-10-31 01:09] LABS: #Basophils 0.1 thou/uL (0.0-0.2); #Eosinphils 0.1 thou/uL (0.0-0.7); #Lymphocytes 3.5 thou/uL (1.20-3.40); #Neutrophils 7.5 thou/uL (1.40-6.50); %Basophils 0.4 % (0.0-1.0); %Eosinophils 0.7 % (0.0-10.0); %Lymphocytes 28.8 % (21.0-51.0); %Monocytes 8.5 % (0.0-10.0); %Neutrophils 61.6 % (42.0-75.0); RBC Morphology Normal
[2021-10-31] MEDS ORDERED: Ketorolac Tromethamine 30 MG/ML VIAL ONE (02:13)
[2021-10-31] MEDS ORDERED: Iopamidol-370 76% 500 ML 1 ML ONE (08:30)
== END 2021-10-31 04:55 | disposition home or self-care (01) ==
LOC: ERS 23:36
DX: R07.1 Chest pain on breathing (principal); R00.0 Tachycardia, unspecified; I10 Essential (primary) hypertension; E11.9 Type 2 diabetes mellitus without complications; G47.33 Obstructive sleep apnea (adult) (pediatric); F17.210 Nicotine dependence, cigarettes, uncomplicated; Z79.84 Long term (current) use of oral hypoglycemic drugs; Z79.899 Other long term (current) drug therapy
CPT/HCPCS: 36415; 71045; 71275; 80306; 81025; 83690; 84484; 85025; 93005; J1885; Q9967

== ENCOUNTER 2025-01-16 13:16 | Emergency (ER) | payer SELFPAY ==
[2025-01-16 13:51] LABS: Pregnancy Test - Urine (BHCG) Negative (Negative); Pregu Control Background? CLEAR/WHITE (CLR/WHITE); Pregu Control Bar Appear? YES (CONTROL BAR)
[2025-01-16 14:01] LABS: Bacteria/HPF None Seen HPF (None Seen); CAUTI Indications for Culture Dysuria,urgency,freq; Glucose, Urine (Dipstick) Greater than 1000 mg/dL (Negative); Leukocyte Negative Leu/uL (Negative); Protein, Urine (Dipstick) Negative (Neg-Trace); Specific Gravity, Urine 1.040 (1.002-1.036); WBC/HPF None Seen HPF (0-3)
[2025-01-16 14:04] LABS: Urine Culture Reflex No No
[2025-01-17 00:54] LABS: Chlamydia by PCR, Vaginal Swab Not Detected (NotDetected); GC by PCR, Vaginal Swab Not Detected (NotDetected)
== END 2025-01-16 16:29 | disposition home or self-care (01) ==
LOC: ERS 13:16
DX: N76.0 Acute vaginitis (principal); B37.31 Acute candidiasis of vulva and vagina; E11.9 Type 2 diabetes mellitus without complications; Z79.84 Long term (current) use of oral hypoglycemic drugs; I10 Essential (primary) hypertension; F17.210 Nicotine dependence, cigarettes, uncomplicated
CPT/HCPCS: 81001; 81025; 87480; 87491; 87510; 87591; 87660; 99283